=== PATIENT | female | born 1975 | race Two or more races ===

== ENCOUNTER 2021-10-01 10:09 | Day surgery (SDC) | payer OTHER ==
[2021-10-01] MEDS ORDERED: MORGIDOX100 MG PO (17:33)
[2021-10-01] MEDS ORDERED: CAMBIA50 MG PO (17:35)
== END 2021-10-01 20:55 | disposition home or self-care (01) ==
LOC: CIR.AMB 10:09
PROVIDERS: ATTEND Obstetrics & Gynecology
DX: D25.0 Submucous leiomyoma of uterus (principal); N94.89 Other specified conditions associated with female genital organs and menstrual cycle